=== PATIENT | female | born 1990 | race Caucasian/White ===

== ENCOUNTER → 2018-05-02 | Outpatient (CLI) | payer MEDICAID | END | disposition home or self-care (01) | LOC: U/S 08:00 | DX: O36.80X0 Pregnancy with inconclusive fetal viability, not applicable or unspecified (principal); Z3A.08 8 weeks gestation of pregnancy | CPT/HCPCS: 76801 ==

== ENCOUNTER 2018-11-22 11:02 | Inpatient (IN) | payer MEDICAID ==
[2018-11-22 12:23] LABS: ADD UMIC YES; UR ASCORBIC ACID NEGATIVE (NEGATIVE); UR BILIRUBIN (Dip) NEGATIVE (NEGATIVE); UR BLOOD (Dip) 3+ mg/dL (NEGATIVE); UR CLARITY SLIGHTLY CLOUDY (CLEAR); UR COLOR YELLOW (YELLOW); UR GLUCOSE (Dip) 1+ mg/dL (NEGATIVE); UR KETONES (Dip) NEGATIVE (NEGATIVE); UR LEUKOCYTE ESTERASE (Dip) 1+ Leu/ul (NEGATIVE); UR MUCUS FEW /HPF (NONE SEEN); UR NITRITE (Dip) NEGATIVE (NEGATIVE); UR RBC > 182 /HPF (0-5); UR SQUAMOUS EPITHELIAL CELL MODERATE /HPF (FEW); UR TOTAL PROTEIN (Dip) NEGATIVE (NEGATIVE); UR UROBILINOGEN (Dip) 1+ mg/dL (NEGATIVE); UR WBC 38 /HPF (0-5)
[2018-11-22] MEDS ORDERED: CARBOPROST 250 MCG INJ IM ×2 (15:00→21:00)
[2018-11-22] MEDS ORDERED: OXYTOCIN 30 UNITS/LR 500 ML IV ×2 (15:00)
[2018-11-22] MEDS ORDERED: BUTORPHANOL 2 MG INJ IV (15:00)
[2018-11-22] MEDS ORDERED: MISOPROSTOL 200 MCG TAB PR ×2 (15:00→21:00)
[2018-11-22] MEDS ORDERED: METHYLERGONOVINE 0.2 MG INJ IM ×2 (15:00→21:00)
[2018-11-22 15:33] LABS: ADD MAN DIFF? NO
[2018-11-22 15:37] LABS: BASOPHILS % 0.4 % (0.0-2.0); EOSINOPHILS # 0.1 10^3/ul (0.0-0.5); HEMATOCRIT 40.8 % (37.0-47.0); HEMOGLOBIN 13.6 g/dl (12.0-16.0); LYMPHOCYTES # 2.1 10^3/ul (0.8-2.9); LYMPHOCYTES % 22.9 % (15.0-51.0); MEAN CORPUSCULAR HEMOGLOBIN 27.4 pg (29.0-33.0); MEAN CORPUSCULAR HGB CONC 33.3 g/dl (32.0-37.0); MEAN CORPUSCULAR VOLUME 82.3 fl (82.0-101.0); MONOCYTE # 0.7 10^3/ul (0.3-0.9); MONOCYTES % 7.4 % (0.0-11.0); NEUTROPHIL # 6.1 10^3/ul (1.6-7.5); NEUTROPHILS % 67.7 % (39.0-77.0); PLATELET COUNT 273 10^3/UL (140-415); RED BLOOD COUNT 4.96 10^6/ul (4.20-5.40); RED CELL DISTRIBUTION WIDTH 13.4 % (11.5-14.5)
[2018-11-22 16:23] LABS: INR 0.86; PROTIME 11.8 Sec (11.9-14.9); PT RATIO 0.9
[2018-11-22 16:24] LABS: PARTIAL THROMBOPLASTIN TIME 26.9 Sec (23.0-35.0)
[2018-11-22 16:38] LABS: HEPATITIS B SURFACE ANTIGEN NEGATIVE (NEGATIVE)
[2018-11-22] MEDS: LACTATED RINGER'S 1,000 ML IV (16:39)
[2018-11-22] MEDS: LIDOCAINE 1% (MPF) 30 ML INJ INJ (18:34)
[2018-11-22] MEDS: IBUPROFEN 600 MG TAB PO ×2 (18:34→23:57)
[2018-11-22] MEDS: OXYTOCIN 30 UNITS/LR 500 ML IV ×2 (18:34→18:39)
[2018-11-22 20:14] LABS: RAPID PLASMA REAGIN NONREACTIVE (NR)
[2018-11-22] MEDS ORDERED: OXYCODONE/ASPIRIN (4.88/325) TAB PO ×3 (20:39→21:00)
[2018-11-22] MEDS ORDERED: ZOLPIDEM 5 MG TAB PO (21:00)
[2018-11-22] MEDS: MISOPROSTOL 50 MCG CAPSULE VAG (21:29)
[2018-11-22] MEDS: SENNA/DOCUSATE NA (8.6MG/50MG) TAB PO (22:28)
[2018-11-22] MEDS: WITCH HAZEL/GLYCERIN PAD PR (22:28)
[2018-11-22] MEDS: LANOLIN HPA 1 PKT TOP (22:28)
[2018-11-22] MEDS: BENZOCAINE 20% 56 ML SPRAY TOP (22:50)
[2018-11-23] MEDS: OXYTOCIN 30 UNITS/LR 500 ML IV (00:19)
[2018-11-23] MEDS: IBUPROFEN 600 MG TAB PO ×3 (05:51→17:52)
[2018-11-23 08:42] LABS: ADD MAN DIFF? NO
[2018-11-23 08:45] LABS: BASOPHILS % 0.3 % (0.0-2.0); EOSINOPHILS # 0.1 10^3/ul (0.0-0.5); EOSINOPHILS % 0.5 % (0.0-7.0); HEMATOCRIT 36.4 % (37.0-47.0); HEMOGLOBIN 12.1 g/dl (12.0-16.0); LYMPHOCYTES # 1.2 10^3/ul (0.8-2.9); LYMPHOCYTES % 10.5 % (15.0-51.0); MEAN CORPUSCULAR HEMOGLOBIN 27.8 pg (29.0-33.0); MEAN CORPUSCULAR HGB CONC 33.2 g/dl (32.0-37.0); MEAN CORPUSCULAR VOLUME 83.5 fl (82.0-101.0); MEAN PLATELET VOLUME 9.8 fl (7.4-10.4); MONOCYTE # 0.8 10^3/ul (0.3-0.9); MONOCYTES % 7.6 % (0.0-11.0); NEUTROPHIL # 8.9 10^3/ul (1.6-7.5); NEUTROPHILS % 80.4 % (39.0-77.0); PLATELET COUNT 227 10^3/UL (140-415); RED BLOOD COUNT 4.36 10^6/ul (4.20-5.40); RED CELL DISTRIBUTION WIDTH 13.2 % (11.5-14.5)
[2018-11-23] MEDS: SENNA/DOCUSATE NA (8.6MG/50MG) TAB PO ×2 (09:09→20:49)
[2018-11-24] MEDS: IBUPROFEN 600 MG TAB PO ×3 (00:03→11:33)
[2018-11-24] MEDS: DIPHTH/TET/ACEL PERTUSS (ADULT) 0.5 ML VIAL IM* (09:00)
[2018-11-24] MEDS: SENNA/DOCUSATE NA (8.6MG/50MG) TAB PO (09:37)
== END 2018-11-24 16:15 | disposition home or self-care (01) | DRG 807 ==
LOC: OBT 11:02 → L-D 11:03 → OBT 15:00 → L-D 15:00 → PP1 20:59
PROC: 10E0XZZ Delivery of Products of Conception, External Approach (ICD-10-PCS; principal; 2018-11-22)
PROC: 0KQM0ZZ Repair Perineum Muscle, Open Approach (ICD-10-PCS; 2018-11-22)
PROC: 3E033VJ Introduction of Other Hormone into Peripheral Vein, Percutaneous Approach (ICD-10-PCS; 2018-11-22)
DX: O70.1 Second degree perineal laceration during delivery (principal); Z37.0 Single live birth; Z3A.38 38 weeks gestation of pregnancy
CPT/HCPCS: 76818; 81001; 85025; 85610; 85730; 86592; 86850; 86870; 86900; 86901; 86902; 87340; 99464